=== PATIENT | female | born 1985 | race Caucasian/White ===

== ENCOUNTER 2024-09-08 10:03 | Day surgery (SDC) | payer MEDICAID, SELFPAY ==
[2024-09-08] VITALS (12 sets, daily range): BP systolic 119–133; BP diastolic 53–83; PULSE 70–92; RESP 16–20; TEMP 36.3–36.8; O2SAT 94–100; BMI 31.9
[2024-09-08 10:39] LABS: Internal QC Validated? YES +Cl - CLEAR BKGD; Pregnancy, Urine Negative Negative
[2024-09-08] MEDS: 0.9% Normal Saline (1000mL) 1,000 ML 15 ML IV (10:43)
--- NOTE | 2024-09-08 10:58 | PCM.PRE.AN2 ---
ASA Classification* ASA Classification ASA Classification: 2 Assessment & Plan Anesthesia* Anesthesia Assessment Anesthesia Assessment: Discussed sedation and/or anesthesia options, risks, benefits, and alternatives with patient/parents/legal guardian/POA. Questions invited. The patient/parents/legal guardian/POA seems to understand and agrees to proceed with anesthesia plan. Reviewed the physical assessment, medical history, allergy history and patient home medications list prior to surgery/procedure/anesthetic and documented any changes. Performed airway and anesthesia risk assessments. Anesthesia Type Anesthesia Type: General History Source History Obtained from:: Patient and Chart Anesthesia Focused Assessment* Temperature: 97.3 F Pulse Rate: 85 Blood Pressure: 133/67 Respiratory Rate: 20 Pulse Ox: 98 Oxygen Delivery Method: Room Air Airway Assessment Mouth opens: >3 cm Mallampati Score: III Teeth Condition: Intact Neck Range of motion (ROM): Full ROM Focused Labs Anesthesia Preop lab: CBC CHEMISTRY COAG Urine Test Negative Negative 09/08/24 10:22 Pre-Assessment Diagnosis/Proposed Procedure Planned Operative Procedure(s): (B) Bilateral Saphenous Femoral Ligation, Bilateral Saphenous Ablation Chemical, in Health Program Manager OR Staff, Anes, MAC ARTIST Anesthesia History 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 When Was Last Pacemaker Check QUESTION #4 FULL TEXT: You/Your Family Experience fever (hyperthermia) with Anesthesia Last Oral Intake Last Oral intake: Last Oral Intake NPO since 00:00 09/08/24 10:36 Meds taken in AM with sips of water? Meds patient instructed to take am of surgery PONV PONV - tourist camp attendant: PONV - tourist camp attendant Female Yes 08/25/24 13:29 HX of Motion Sickness No 08/25/24 13:29 HX of N/V After Surgery No 08/25/24 13:29 Non-Smoker No 08/25/24 13:29 Duration of Surgery greater Yes 08/25/24 13:29 than 60 minutes Number of Risk Factors 2 08/25/24 13:29 PONV Score Moderate Risk 08/25/24 13:29 Height & Weight Height & Weight: Anesthesia: Height & Weight Height 5 ft 6 in 09/08/24 10:36 Weight: 89.811 kg 09/08/24 10:36 Body Mass Index (BMI) 31.9 09/08/24 10:36 Respiratory Assessment Respiratory Assessment - tourist camp attendant: Respiratory Tract Infection Hx - tourist camp attendant Hx Respiratory Tract Infection No 08/25/24 13:29 STOP Sleep Apnea STOP Sleep Apnea - tourist camp attendant: STOP Sleep Apnea - tourist camp attendant Hx Hypertension No 08/25/24 13:29 Hx Sleep Apnea No 08/25/24 13:29 CPAP BIPAP Do you snore loudly (louder No 08/25/24 13:29 than talking or can be heard Do you often feel tired/ No 08/25/24 13:29 fatigued/ sleepy during daytime? Has anyone observed you stop No 08/25/24 13:29 breathing during sleep? STOP Results Negative 08/25/24 13:29 QUESTION #5 FULL TEXT : Do you snore loudly (louder than talking or can be heard through closed doors)? 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 Specify any problems Hx of Preganancy in last 3 No 08/25/24 13:29 Months Nurse Filling Out Transfusion VCHRISTIN 08/25/24 13:29 & Questions: Date: 08/25/24 08/25/24 13:29 Time: 13:30 08/25/24 13:29 Patient unable to answer at this time (ie. confused, unrespo /Reproduction History /Reproductive History - tourist camp attendant: /Reproductive Hx- tourist camp attendant Hx Now No 08/25/24 13:29 Gestational Age (in weeks): EDC: Hx Hx Para Hx Section SAB No 08/25/24 13:29 Active Medications Active Medications: Current Medications Generic Name Dose Route Start Last Admin Trade Name Freq PRN Reason Stop Dose Admin Sodium Chloride 1,000 mls @ 15 mls/hr 09/08/24 10:10 09/08/24 10:43 IV 09/13/24 23:29 15 mls/hr .Q48H CONSTANTINE Administration Protocol [facility] Medical History Wears glasses Anxiety Anemia Pulmonary embolism DVT (deep venous thrombosis) Protein C deficiency Migraine headache Gastric reflux Smoker History of pain when walking History of edema Venous insufficiency Ankle edema Cellulitis of right lower extremity Cellulitis of left lower extremity Gauchers disease Home Medications ?Medication ?Instructions ?Recorded ?Last Taken ?Type buprenorphine 8 mg-naloxone 2 mg 1 film buccal BID 07/27/24 09/07/24 History sublingual film (Suboxone) eliglustat 84 mg capsule (Cerdelga) 84 mg PO QDAY 07/27/24 09/07/24 History calcium 500 mg (as 1 tab PO BID 08/25/24 Unknown History carbonate)-vitamin D3 5 mcg (200 unit) tablet (Oyster Shell Calcium-Vitamin D3) cyanocobalamin (vitamin B-12) 1,000 mcg PO DAILY 08/25/24 Unknown History 1,000 mcg tablet (Vitamin B-12) ferrous sulfate 325 mg (65 mg 325 mg PO TID 08/25/24 09/06/24 History iron) tablet,delayed release folic acid 1 mg tablet 1 mg PO DAILY 08/25/24 Unknown History ibuprofen 200 mg tablet (Advil) 200 mg PO Q8H 08/25/24 09/07/24 History medroxyprogesterone 150 mg/mL 300 mg IM QMONTH 08/25/24 Unknown History intramuscular suspension (Depo-Provera) omeprazole 20 mg tablet,delayed 40 mg PO DAILY 08/25/24 09/07/24 History release rivaroxaban 20 mg tablet (Xarelto) 20 mg PO QPM 08/25/24 09/05/24 History Allergy/AdvReac Type Severity Reaction Status Date / Time No Known Allergies Allergy Verified 09/08/24 10:34 Family History Other Cancer Seizures Surgical History Hx of surgical procedure Social History Smoking Status: Light Smoker (<10/day) Tobacco: How many years used: 20 Review of Systems (Anesthesia) ROS Narrative System reviewed and no additional complaints, except as documented.
--- NOTE | 2024-09-08 13:11 | HP.PCM_ITS ---
History and Physical Allergies No Known Allergies Allergy (Verified 08/13/24 16:17) Medications ?Medication ?Instructions ?Recorded ?Confirmed ?Type buprenorphine 8 mg-naloxone 2 mg 1 film buccal QDAY 07/27/24 08/13/24 History sublingual film (Suboxone) calcium lactate 325 mg tablet 100 mg PO 07/27/24 08/13/24 History cephalexin 250 mg capsule 250 mg PO BID 07/27/24 08/13/24 History ciprofloxacin HCl 250 mg tablet 250 mg PO BID 07/27/24 08/13/24 History (Cipro) eliglustat 84 mg capsule (Cerdelga) 84 mg PO QDAY 07/27/24 08/13/24 History rivaroxaban 2.5 mg tablet (Xarelto) 2.5 mg PO BID 07/27/24 08/13/24 History zinc glycinate 30 mg capsule 30 mg PO QDAY 07/27/24 08/13/24 History Is last menstrual period known: No Post menopausal: No Patient : No Have you fallen in the past year?: No PFSH Medical History Venous insufficiency Ankle edema Cellulitis of right lower extremity Cellulitis of left lower extremity Gauchers disease Family History Other Cancer Seizures Social History Smoking Status: Light Smoker (<10/day) Tobacco: How many years used: 20 HPI HPI HPI: ZEYAD BLAKELY, is a 38 F who presents to the office today for evaluation of bilateral lower extremity calf/ankle/dorsum of foot wounds present for several months. Prior to this she had significant edema bilateral and had used non- fitted compression. The wounds on the left began with bullae then progressed to ulceration and enlarged. On the right it began after she caused injury shaving. She has had several debridements at an outside facility and had reflux imaging. ROS General General: Yes fatigue; No weight change, appetite, colon cancer, breast cancer or weakness HEENT HEENT: Yes swollen glands; No difficulty swallowing, eye injury, eye surgery or hoarseness Endo Endocrine: No thyroid disease, diabetes mellitus, thyroid cancer, Hair loss, heat intolerance or cold intolerance Skin Skin: No rash or changing moles Musc Musculoskeletal: No back problems, arthritis, rheumatoid arthritis, gout or joint pain Cardio Cardiovascular: No murmur, pacemaker, heart disease, atrial fibrillation, high blood pressure, heart attack, heart stent, palpitations, shortness of breat with exertion or chest pain Psych Psychiatric: Yes depression and anxiety; No hearing voices Resp Respiratory: No shortness of breath, No sleep apnea, No cough, No COPD, No asthma, No emphysema and No wheezing Gastro Gastrointestinal: No abdominal pain, Yes nausea or vomiting, Yes diarrhea, No constipation, No blood in stool, Yes acid reflux, No hemorrhoids, No ulcers, No gallbladder problem and No black,tarry stools Vikram Hematologic: Yes blood thinners, No blood disorders, No bleeding, Yes anemia and Yes blood clots Neuro Neurologic: No system reviewed and no additional complaints, except as docu mented, No as per HPI, No abnormal gait, No abnormal hearing, No abnormal movements, No abnormal speech, No behavioral changes, Yes burning sensations, No confusion, No convulsions, No disequilibrium, No dizziness, No localized weakness, No frequent falls, Yes headache(s), No lack of coordination, No loss of vision, No memory loss, Yes numbness, No other visual disturbances, No radicular pain, Yes restless legs, No sensory deficit, No syncope, Yes tingling, No tremor(s), No weakness and No other Exam Const General: cooperative, healthy appearing, comfortable, no acute distress and well developed Nutritional Appearance: well nourished Orientation: alert, awake and oriented x3 [facility] Head: normocephalic and atraumatic Ears: hearing grossly normal bilaterally Nose: external nose normal Eyes General: appearance normal, both eyes and all related structures EOM: EOM intact bilaterally Neck Neck: normal visual inspection, full ROM and trachea midline Resp Effort & Inspection: normal respiratory effort, able to speak in complete sentences, symmetric chest movement, no audible wheezes, not labored, no stridor and no use of accessory muscles Cardio Rate: regular rate Rhythm: regular rhythm Pulses: brachial pulses present and radial pulses present Skin General: no rashes or lesions noted and no erythema Neuro Cranial Nerves: CN's II-XI intact bilaterally and EOM intact bilaterally Speech: speech normal Gait: normal gait Motor: strength 5/5 throughout Sensory Exam: no sensory deficits noted Psych Appearance: grossly normal and well kempt Mental Status: mental status grossly normal Mood: congruent mood Speech and Movement: speech and movement normal Thought Content: normal Judgment: judgment good Coding Level of Care Code Off vis,new,level 4 Diagnoses Venous insufficiency I87.2 Assessment and Plan Assessment and Plan (1) Venous insufficiency: Status: Chronic Plan: -bilateral SFJ ligation, chemical ablation
--- NOTE | 2024-09-08 16:13 | DCINST_ITS ---
Discharge Instructions Activity May shower in (days): 2 Lifting Restrictions: do not lift > 20 lbs for 2 weeks Additional Activity Instructions:: do not submerge incision for 2 weeks Dressing / Incision Call your doctor if your incision/area has: Sudden Increased Bleeding, Increased Pain/ Swelling, Increased Redness and Foul Smelling Discharge Call your doctor if you observe: Fever of 101 or Higher Remove Dressing in: 2 days Cleanse incision/area with: Soap & Water Follow Up Care Test Results: Test results from this visit will be discussed in further detail at your follow- up appointment, if applicable. Discharge Plan Admission Attending Provider: Ilya Garcia Primary Care Provider: Ray Anderson Instructions Print Language: [place] African Discharge Orders/Prescriptions Prescriptions: New ketorolac 10 mg tablet 10 mg PO Q8H PRN (Reason: pain) 3 Days Qty: 9 0RF Rx Instructions: maximum total duration of 5 days from all oral, intranasal, or parenteral formulations Continued buprenorphine-naloxone [Suboxone] 8-2 mg film 1 film buccal BID Cerdelga 84 mg capsule 84 mg PO QDAY folic acid 1 mg tablet 1 mg PO DAILY ferrous sulfate 325 mg (65 mg iron) tablet,delayed release (DR/EC) 325 mg PO TID calcium carbonate-vitamin D3 [Oyster Shell Calcium-Vit D3] 500 mg-5 mcg (200 unit) tablet 1 tab PO BID omeprazole 20 mg tablet,delayed release (DR/EC) 40 mg PO DAILY ibuprofen [Advil] 200 mg tablet 200 mg PO Q8H medroxyprogesterone [Depo-Provera] 150 mg/mL suspension 300 mg IM QMONTH cyanocobalamin (vitamin B-12) [Vitamin B-12] 1,000 mcg tablet 1,000 mcg PO DAILY Held Xarelto 20 mg tablet 20 mg PO QPM Hold Instructions: Resume on 09/10/24. Patient Comments: STOP 2 DAYS PRIOR TO OR-LAST DOSE 09/05/24 Referrals / Follow Up: Ray Anderson MD [Primary Care Provider] - Disposition Disposition (needs filled in before D/C Order can be placed): Home, Self Care
--- NOTE | 2024-09-08 17:02 | PCM.POST.ANE ---
Anesthesia: Postop Eval I Current Vital Signs Temperature: 98.1 F Pulse Rate: 92 Blood Pressure: 122/53 Respiratory Rate: 18 Pulse Ox: 100 Oxygen Delivery Method: Room Air Assessment Airway patent: Yes Spontaneous unlabored respirations: Yes Mental status: Awake and Calm nausea: No Vomiting: No Anesthesia Complication: No Fluid Hydration Crystalloid volume administer (ml): 1,500 Total IV fluid infused: 1,500 Progress Note Anesthesia document: Postop Eval 1 completed: Yes
--- NOTE | 2024-09-08 17:32 | OP.PCM_ITS ---
Operative Report (Standard) Operative Information Date of Procedure: 09/08/24 Pre-Operative Diagnosis: Venous insufficiency with ulceration of the bilateral lower extremity medial ankles Post-Operative Diagnosis: Same Surgery/Procedure Performed: Bilateral saphenofemoral junction ligation and chemical ablation bilateral great saphenous veins city controller: Yes Lace Roller Operator: Skylar Baird Tasks completed by machinist first class: Opening, Closing, Opening & closing, Hemostasis: Tie and Retracting Type of Anesthesia: General RN Documented Start/Stop Times: Operation Date: 09/08/24 11:30 Case Time Into Pre-Op 09/08/24 10:07 Out of Pre-Op 09/08/24 13:20 Into Recovery 09/08/24 16:55 Procedure Start Time: 14:00 Procedure Stop Time: 16:30 Select all DRAINS/GRAFTS/IMPLANTS that apply: None Estimated Blood Loss: 9 Specimen collected: No Description of surgery: HPI: Patient is a 38-year-old female with significant bilateral lower extremity venous ulcerations and reflux in the great saphenous veins as well as the saphenofemoral junction. She also has deep vein reflux which is probably also contributing to her venous skin changes and ulceration however it is felt to that treatment of the superficial system will provide at least some alleviation of the venous hypertension. Description of procedure: Upon obtaining form consent and verification correct patient procedure site the patient was taken to the Facilities Project Manager where she was placed under general anesthesia. She was then positioned prepped and draped in usual sterile fashion a time was performed. Skin overlying the right saphenofemoral junction was anesthetized with 1% lidocaine and transverse incision made. Bovie electrocautery was dissect down through subcutaneous tissue and self-retaining retractors put in position. Further dissection was carried down to the saphenofemoral junction which was then dissected free with sharp dissection proximal and distal with sidebranches ligated with silk ties and divided. Once an adequate length of great saphenous vein was dissected a writing was replaced vessel loop. Next skin overlying the left saphenofemoral junction was anesthetized 1% lidocaine and transverse incision created. Bovie electrocautery was then used dissect down through subcutaneous tissue and self- retaining retractors put in position. Further dissection was carried down until the great saphenous vein was visualized and sharp dissection was then used dissect free proximally up to the saphenofemoral junction. Sidebranches were ligated with silk ties and divided and the great saphenous vein and junction dissected free circumferentially then a right angle used to place a vessel loop. Next under ultrasound guidance the right great saphenous vein in the mid calf was accessed with a micropuncture needle wire. This was then exchanged for the 7 Upper Sorbian glue delivery sheath. The left great saphenous vein in the mid calf was then accessed with a micropuncture needle wire and exchanged for micropuncture sheath. Through this a J-wire was advanced and the micropuncture sheath exchanged for a 7 Upper Sorbian sheath. The glue delivery guide was then advanced via the right saphenous access sheath and positioned just below the intended ligation site. The dilator was withdrawn and the glue delivery catheter advanced through the guide and positioned inferior to the ligation site. The great saphenous vein on the right was then ligated with silk tie and then clamped at the saphenofemoral junction. Glue was then delivered sequentially along the length of the treatment zone down to the sheath. The delivery guide and catheter then withdrawn after which the sheath was withdrawn and manual pressure held until hemostasis was obtained. The great saphenous vein just inferior to the saphenofemoral junction was then divided and the proximal stump oversewn with 5-0 Prolene in 2 layers. The clamp was then removed and satisfactory stasis was noted. Next the glue delivery guide was advanced via the left saphenous access sheath and advanced to just below the intended ligation site. The glue delivery catheter was advanced through the guide and positioned below the ligation site. The great saphenous vein was then ligated with silk tie, clamped at the saphenofemoral junction and glue deposited along the treatment zone down to the sheath. The guide and catheter then withdrawn after which the sheath withdrawn manner pressure until hemostasis was obtained. The great saphenous vein was then divided between the silk tie and the clamp and the proximal stump oversewn with 5-0 Prolene in 2 layers after which the clamp was removed and satisfactory stasis was noted. Incision was then inspected for hemostasis and closed with 3-0 Vicryl, 4-0 Monocryl and Dermabond for the skin. Dry sterile dressings and Jamel wrap's were then applied and the patient was taken the recovery room with anticipated discharge to home. Surgical Findings: See above Complications Complications: No
--- NOTE | 2024-09-08 22:52 | POSTOPAN2_ITS ---
Anesthesia Postop Eval I Sum Postop Eval Completion status Anesthesia document: Postop Eval 1 completed: Yes Anesthesia Postop Eval I Summary Anesthesia Postop Eval I Summary: Anesthesia Postop Eval I: Assessment Summary Airway patent Yes 09/08/24 17:03 [email or web address] [email or web address] Spontaneous unlabored Yes 09/08/24 17:03 SHADER [email or web address] respirations Mental status Awake,Calm 09/08/24 17:03 SHADER [email or web address] nausea No 09/08/24 17:03 SHADER [email or web address] Vomiting No 09/08/24 17:03 SHADER [email or web address] Anesthesia Postop Eval I: Fluid Summary Crystalloid volume administer 1,500 09/08/24 17:03 [email or web address] [email or web address] (ml) Colloids volume administered ( ml) Blood Product volume administered (ml) Total IV fluid infused 1,500 09/08/24 17:03 SHADER [email or web address] Anesthesia Postop Eval I: Summary Notes Anesthesia Complication No 09/08/24 17:03 SHADER [email or web address] Anesthesia Complication Comment: Post-operative progress note Anesthesia: Postop Eval II Evaluation Mental status: Awake and Calm Pain Level: 1 nausea: No Vomiting: No Complications Anesthesia Complication: No
--- NOTE | 2024-09-08 22:52 | PCM.POSTANE2 ---
Anesthesia Postop Eval I Sum Postop Eval Completion status Anesthesia document: Postop Eval 1 completed: Yes Anesthesia Postop Eval I Summary Anesthesia Postop Eval I Summary: Anesthesia Postop Eval I: Assessment Summary Airway patent Yes 09/08/24 17:03 DISPLAY [email or web address] Spontaneous unlabored Yes 09/08/24 17:03 DISPLAY [email or web address] respirations Mental status Awake,Calm 09/08/24 17:03 DISPLAY [email or web address] nausea No 09/08/24 17:03 DISPLAY [email or web address] Vomiting No 09/08/24 17:03 DISPLAY [email or web address] Anesthesia Postop Eval I: Fluid Summary Crystalloid volume administer 1,500 09/08/24 17:03 DISPLAY [email or web address] (ml) Colloids volume administered ( ml) Blood Product volume administered (ml) Total IV fluid infused 1,500 09/08/24 17:03 DISPLAY [email or web address] Anesthesia Postop Eval I: Summary Notes Anesthesia Complication No 09/08/24 17:03 DISPLAY [email or web address] Anesthesia Complication Comment: Post-operative progress note Anesthesia: Postop Eval II Evaluation Mental status: Awake and Calm Pain Level: 1 nausea: No Vomiting: No Complications Anesthesia Complication: No
== END 2024-09-08 19:02 | disposition home or self-care (01) ==
LOC: SDC 10:10 → AC 10:14
PROVIDERS: Anesthesiology; PCP Internal Medicine; Referring Provider Surgery Trauma Surgery; Visit Provider Surgery Trauma Surgery
PROC: (CPT 36478; principal; 2024-09-08 11:15)
DX: I87.2 Venous insufficiency (chronic) (peripheral) (principal); E75.22 Gaucher disease; L97.319 Non-pressure chronic ulcer of right ankle with unspecified severity; L97.329 Non-pressure chronic ulcer of left ankle with unspecified severity; F17.200 Nicotine dependence, unspecified, uncomplicated; Z79.01 Long term (current) use of anticoagulants; Z79.899 Other long term (current) drug therapy
CPT/HCPCS: 36482; 37700; 81025; A4648; C1894; J2405

== ENCOUNTER → 2024-09-11 | Outpatient (CLI) | payer MEDICAID, SELFPAY ==
--- NOTE | 2024-09-11 11:07 | VDLE_ITS ---
Reason For Study: S/P Chemical Ablation RIGHT LEFT GSV appears dilated and NONCOMPRESSIBLE with GSV appears dilated and NONCOMPRESSIBLE with intraluminal echoes consistent with recent intraluminal echoes consistent with recent chemical ablation from prox thigh to mid chemical ablation from prox thigh to mid calf. calf. Unable to visualize distal calf due to wounds Unable to visualize distal calf due to wounds and bandages. and bandages. Unable to visualize CFV and SFJ due to wounds Unable to visualize CFV and SFJ due to wounds and bandages. and bandages. FV is compressible, spontaneous, phasic, FV is compressible, spontaneous, phasic, competent and demonstrates normal competent and demonstrates normal augmentation. augmentation. POP V is PARTIALLY COMPRESSIBLE with bright POP V is PARTIALLY COMPRESSIBLE with bright intraluminal echoes but appears spontaneous, intraluminal echoes but appears spontaneous, phasic, competent and demonstrates normal phasic, competent and demonstrates normal augmentation. Finding is consistent with augmentation. Finding is consistent with CHRONIC DVT. CHRONIC DVT. T/P Trunk is compressible. T/P Trunk is compressible. PTV is compressible. PTV is compressible. RT PerV is compressible. RT PerV is compressible. VL/Venous Duplex US - Collin Extrem Interpretation Summary Chronic deep vein thrombosis noted in the right popliteal vein. Chronic deep vein thrombosis noted in the left popliteal vein. Bilateral great saphenous veins occluded consistent with recent ablation. Ordering Physician: Ilya Garcia Referring Physician: Ray Anderson Performed By: Italo Hampton, RVT
== END | disposition home or self-care (01) ==
PROVIDERS: PCP Internal Medicine; Referring Provider Surgery Trauma Surgery; Visit Provider Surgery Trauma Surgery
DX: I87.2 Venous insufficiency (chronic) (peripheral) (principal)
CPT/HCPCS: 93970

== ENCOUNTER → 2025-03-18 | Outpatient (CLI) | payer MEDICAID, SELFPAY ==
--- NOTE | 2025-03-18 12:53 | VDLE_ITS ---
Reason For Study Reason For Study: BIlateral leg pain RIGHT LEFT CFV is compressible, spontaneous, phasic, competent CFV is compressible, spontaneous, phasic, competent, and demonstrates normal augmentation. and demonstrates normal augmentation. FV is compressible, spontaneous, phasic, competent FV is compressible, spontaneous, phasic, competent and demonstrates normal augmentation. and demonstrates normal augmentation. POP V is PARTIALLY COMPRESSIBLE with bright POP V is PARTIALLY COMPRESSIBLE with bright intraluminal echoes but appears spontaneous, phasic, intraluminal echoes but appears spontaneous, phasic, competent and demonstrates normal augmentation. competent and demonstrates normal augmentation. Finding is consistent with CHRONIC DVT. Finding is consistent with CHRONIC DVT. T/P Trunk is compressible. T/P Trunk is compressible. PTV is compressible. PTV is compressible. RT PerV is compressible. RT PerV is compressible. Distal calf vessels not visualized due to open wounds with bandages. SFJ is absent, s/p ligation. GSV is occluded from prox thigh to mid calf s/p SFJ is absent, s/p ligation. ablation. GSV is occluded from prox thigh to mid calf s/p INCOMPETENT air launch weapons technician noted 20 cm above medial ablation. melleolus. ASV at knee is INCOMPETENT for greater than 0.5 ASV at knee is INCOMPETENT for greater than 0.5 seconds and measures 0.32 x 0.33 cm. seconds and measures 0.40 x 0.40 cm. SSV mid calf is INCOMPETENT for greater than 0.5 SSV mid calf is INCOMPETENT for greater than 0.5 seconds and measures 0.21 x 0.23 cm. seconds and measures 0.24 x 0.25 cm. Procedure This is a venous duplex using B-mode, color flow and spectral Doppler. Exam performed in department. Patient was scanned in reverse Trendelenburg position during reflux assessment. VL/Venous Duplex US - [facility] Extrem Interpretation Summary Chronic deep vein thrombosis noted in the right popliteal vein. Chronic deep vein thrombosis noted in the left popliteal vein. Bilateral great saphenous veins occluded consistent with prior ligation/ablatio n. Positive for reflux in the right accessory saphenous vein at the knee and small saphenous vein. Positive for reflux in the left accessory saphenous vein at the knee, perforato r vein at medial calf and small saphenous vein. Ordering Physician: Jenifer Anderson Referring Physician: Christiano Anderson Performed By: Daniella Kapadia RVT
== END | disposition home or self-care (01) ==
LOC: CVS 12:50
PROVIDERS: PCP Internal Medicine; Referring Provider Physician Assistant; Visit Provider Physician Assistant
DX: I87.339 Chronic venous hypertension (idiopathic) with ulcer and inflammation of unspecified lower extremity (principal); M79.604 Pain in right leg; M79.605 Pain in left leg
CPT/HCPCS: 93970

== ENCOUNTER 2025-05-13 12:18 | Day surgery (SDC) | payer MEDICAID, SELFPAY ==
[2025-05-12 11:37] VITALS: BMI 29.8
[2025-05-13 12:32] LABS: Hematocrit 26.9 % (37-47); Hemoglobin 8.6 g/dL (12.0-15.0); Immature Granulocytes Count 0.030 X10^3/uL (0.0-0.0); Mean Corp Hgb Conc 32.0 g/dL (32-36); Mean Corpuscular Volume 98.5 fL (81-99); Mean Platelet Vol. 10.3 fl (6.2-12.0); NRBC Flagged by Analyzer 0 % (0-5); POSITIVE COUNT YES; Platelet Count 57 K/mm3 (150-450); RBC Distribution Width CV 16.7 % (11.6-14.6); RBC Distribution Width SD 59.4 fl (35.1-43.9); Red Blood Count 2.73 M/mm3 (4.2-5.4); White Blood Count 5.9 K/mm3 (4.4-11.0)
[2025-05-13 12:49] LABS: Anion Gap 11 (5-15); BUN 9 mg/dL (4-19); BUN/Creat Ratio 14.4 RATIO (10-20); Calcium,Total 8.1 mg/dL (7.6-11.0); Carbon Dioxide 17.1 mmol/L (21.0-32.0); Chloride 111 mmol/L (98-108); Differential Indicated SCAN CRITERIA MET; Estimated Creatinine Clearance 132.16 ml/min (50-250); Glucose 92 mg/dL (70-99); Potassium 4.0 mmol/L (3.3-5.1)
--- NOTE | 2025-05-13 17:50 | PCM.OPRPT ---
Operative Report (Standard) Operative Information Date of Procedure: 05/13/25 Pre-Operative Diagnosis: Venous insufficiency with ulceration of the medial ankle Post-Operative Diagnosis: Same Surgery/Procedure Performed: Foam ablation of right accessory saphenous vein post doctoral researcher: No Type of Anesthesia: Local and Sedation,Conscious Procedure Start Time: 14:30 Procedure Stop Time: 14:42 Select all DRAINS/GRAFTS/IMPLANTS that apply: None Estimated Blood Loss: 1 Specimen collected: No Description of surgery: HPI: Patient is a 39-year-old female with bilateral lower extremity ulceration consistent with venous pattern. She has previously undergone great saphenous vein ablation and saphenofemoral junction ligation bilaterally. Most recent venous duplex revealed incompetent accessory saphenous vein directly contiguous with the area of ulceration. She is taken now for foam ablation. Description of procedure: Upon obtaining informed consent and verification correct patient procedure the patient in caliber she was positioned prepped and draped in usual sterile fashion. Timeout was performed and conscious sedation administered Versed and fentanyl. Ultrasound was used to evaluate the accessory saphenous vein and found to be continuous with no significant tortuosity or branching from the superior aspect of the wound to the medial knee where a large dynamite packing machine operator communicated with the deep system. Skin overlying the vessel adjacent to the wound was anesthetized with 1% lidocaine the vessel accessed under ultrasound guidance with a micropuncture needle wire. This then exchanged for micropuncture sheath through which Varithena foam was infused under ultrasound guidance and manual pressure held at the site of the dynamite packing machine operator for 3 minutes upon completion of the foam injection. After manual pressure was held the vessels were interrogated and there was no evidence of foam deep system. The micropuncture sheath was then withdrawn and manual pressure until hemostasis was observed. Jamel wrap was then applied and the patient taken recovery area with plan discharged home. Surgical Findings: See above Complications Complications: No
== END 2025-05-13 15:45 | disposition home or self-care (01) ==
PROVIDERS: PCP Internal Medicine; Referring Provider Surgery Trauma Surgery; Visit Provider Surgery Trauma Surgery
DX: I87.333 Chronic venous hypertension (idiopathic) with ulcer and inflammation of bilateral lower extremity (principal); I87.2 Venous insufficiency (chronic) (peripheral); Z79.899 Other long term (current) drug therapy; Z79.01 Long term (current) use of anticoagulants; K21.9 Gastro-esophageal reflux disease without esophagitis; Z86.718 Personal history of other venous thrombosis and embolism; F17.200 Nicotine dependence, unspecified, uncomplicated
CPT/HCPCS: 36415; 36465; 80048; 85025; C1894; A4216

== ENCOUNTER → 2025-05-17 | Outpatient (CLI) | payer MEDICAID, SELFPAY ==
--- NOTE | 2025-05-17 11:00 | VDLE_ITS ---
Reason For Study Reason For Study: s/p Ablation RIGHT LEFT Rt CFV is PARTIALLY COMPRESSIBLE with bright CFV is compressible, spontaneous, phasic, competent, intraluminal echoes but appears spontaneous, phasic, and demonstrates normal augmentation. competent and demonstrates normal augmentation. Finding is consistent with CHRONIC DVT Rt FV is compressible, spontaneous, phasic, competent and demonstrates normal augmentation Rt POP V is PARTIALLY COMPRESSIBLE with bright intraluminal echoes but appears spontaneous, phasic, competent and demonstrates normal augmentation. Finding is consistent with CHRONIC DVT Rt T/P Trunk is compressible. Rt GastrocV is partially compressible with bright intraluminal echoes consistent with chronic DVT Rt PTV is compressible. RT PerV is compressible. Distal calf vessels not visualized due to open wounds with bandages. Rt SFJ is absent, s/p ligation. Rt GSV is occluded from prox thigh to mid calf s/p ablation Rt SSV and Rt ASV at knee is occluded s/p chemical ablation Lymph node noted Rt Groin measuring 0.95cm x 4.97cm. VL/Venous Duplex US, Unilateral Interpretation Summary Chronic deep vein thrombosis noted in the right common femoral vein, popliteal vein, gastrocnemius vein. RIght great saphenous vein, small saphenous vein and accessory sapehnous vein o ccluded consitent with prior ablations. Ordering Physician: Jenifer Anderson Referring Physician: Ray Anderson Performed By: Barbie Macario, MOSHECS, RVT
--- NOTE | 2025-05-17 11:00 | VDLE_ITS ---
Reason For Study Reason For Study: s/p Ablation RIGHT LEFT Rt CFV is PARTIALLY COMPRESSIBLE with bright CFV is compressible, spontaneous, phasic, competent, intraluminal echoes but appears spontaneous, phasic, and demonstrates normal augmentation. competent and demonstrates normal augmentation. Finding is consistent with CHRONIC DVT Rt FV is compressible, spontaneous, phasic, competent and demonstrates normal augmentation Rt POP V is PARTIALLY COMPRESSIBLE with bright intraluminal echoes but appears spontaneous, phasic, competent and demonstrates normal augmentation. Finding is consistent with CHRONIC DVT Rt T/P Trunk is compressible. Rt GastrocV is partially compressible with bright intraluminal echoes consistent with chronic DVT Rt PTV is compressible. RT PerV is compressible. Distal calf vessels not visualized due to open wounds with bandages. Rt SFJ is absent, s/p ligation. Rt GSV is occluded from prox thigh to mid calf s/p ablation Rt SSV and Rt ASV at knee is occluded s/p chemical ablation Lymph node noted Rt Groin measuring 0.95cm x 4.97cm. VL/Venous Duplex US, Unilateral Interpretation Summary Chronic deep vein thrombosis noted in the right common femoral vein, popliteal vein, gastrocnemius vein. RIght great saphenous vein, small saphenous vein and accessory sapehnous vein o ccluded consitent with prior ablations. Ordering Physician: Jenifer Anderson Referring Physician: Ray Anderson Performed By: Barbie aMcario, MOSHECS, RVT
== END | disposition home or self-care (01) ==
LOC: CVS 11:00
PROVIDERS: PCP Internal Medicine; Referring Provider Surgery Trauma Surgery; Visit Provider Surgery Trauma Surgery
DX: I87.2 Venous insufficiency (chronic) (peripheral) (principal); I87.333 Chronic venous hypertension (idiopathic) with ulcer and inflammation of bilateral lower extremity; Z48.812 Encounter for surgical aftercare following surgery on the circulatory system
CPT/HCPCS: 93971